=== PATIENT | female | born 1990 | race Caucasian/White ===

== ENCOUNTER → 2016-10-07 | Outpatient (CLI) | payer BC, OTHER ==
[~2016-10-07] VITALS: Ht 160 cm; Wt 56.7 kg
[~2016-10-07] MED LIST: SERT50TA PO; SINCALIDE 1.13 MCG in IV NORMAL SALINE 50ML 30 ML IV ONE
--- NOTE | 2016-10-07 12:28 | RAD ---
Radionuclide hepatobiliary scan with gallbladder ejection fraction, 10/07/2016: History: Right upper quadrant pain Following IV injection of 5.5 mCi of technetium 99m Choletec there was prompt uptake of the radionuclide from the blood stream by the liver. Activity is present in the gallbladder and bile ducts at 15 minutes. Small bowel activity develops at 40 minutes. Additional imaging of the gallbladder was then performed following IV injection of 1.1 mcg of cholecystokinin. The gallbladder ejection fraction was calculated at 11%. 30-50% is considered to be the borderline low range. IMPRESSION: 1. No evidence of cystic duct or common bile duct obstruction. 2. Decreased gallbladder ejection fraction of 11%.
== END | disposition home or self-care (01) ==
LOC: NM 08:59
PROVIDERS: ATTEND Family Medicine
DX: R10.11 Right upper quadrant pain (principal)
CPT/HCPCS: 78226; 96374; 96375; A9537; J2805